=== PATIENT | female | born 1945 | race Caucasian/White ===

== ENCOUNTER 2018-09-15 15:52 | Emergency (ER) | payer MEDICARE, OTHER ==
[2018-09-15] MEDS ORDERED: Morphine Sulfate 2 mg/mL 1mL Syr IV STA (17:19)
[2018-09-15] MEDS ORDERED: Morphine Sulfate 2 mg/mL 1mL Syr ONE (17:21)
--- NOTE | 2018-09-15 17:26 | ED Physician Chart ---
ED Chief Complaint/HPI - Patient Information Date Seen:: 09/15/18 Time Seen:: 16:27 Chief Complaint:: s/p trip and fall today History of Present Illness:: s/p trip and fall today with c/o right forehead abrasion, bilateral shoulder pain and RUE pain. No LOC. No CP or SOB Allergies:: Allergies Allergy/AdvReac Type Severity Reaction Status Date / Time No Known Allergies Allergy Verified 09/15/18 16:15 Vitals:: Vital Signs - 8 hr 09/15/18 16:17 Temp 98.4 F HR 117 RR 20 BP 157/76 O2 Sat % 96 Historian:: Patient, Family Member Review:: Nurse's Note Reviewed ED Review of Systems - Review of Systems General/Constitutional: No fever, No chills, No weight loss, No weakness, No diaphoresis, No edema, No loss of appetite Skin: Bruising, Other (skin abrasions on right forehead) Head: No headache, No light-headedness Eyes: No loss of vision, No pain, No diplopia ENT: No earache, No nasal drainage, No sore throat, No tinnitus Neck: No neck pain, No swelling, No thyromegaly, No stiffness, No mass noted Cardio Vascular: No chest pain, No palpitations, No PND, No orthopnea, No edema Pulmonary: No SOB, No cough, No sputum, No wheezing GI: No nausea, No vomiting, No diarrhea, No pain, No melena, No hematochezia, No constipation, No hematemesis G/U: No dysuria, No frequency, No hematuria Musculoskeletal: Bone or joint pain Endocrine: No polyuria, No polydipsia Psychiatric: No prior psych history, No depression, No anxiety, No suicidal ideation Hematopoietic: No bruising, No lymphadenopathy Allergic/Immuno: No urticaria, No angioedema Neurological: No syncope, No focal symptoms, No weakness, No paresthesia, No headache, No seizure, No dizziness, No confusion, No vertigo ED Past Medical History - Past Medical History Obtainable: Yes Past Medical History: HTN Social History: Other (chronic norco use) Family Medical History - Family Member Mother History Unknown: Yes ED Physical Exam - Physical Examination General/Constitutional: Awake, Well-developed, well-nourished, Alert, No distress, GCS 15, Non-toxic appearing, Ambulatory Other Gen/Cons comments:: c/o R shoulder pain Head: Atraumatic Eyes: Lids, conjuctiva normal, PERRL, EOMI Skin: Well hydrated Other Skin comments:: abrasions on right forehead ENMT: External ears, nose nl Neck: No stridor Other Neck comments:: c/o neck pain. therefore, placed in c-spine precautions and c-collar placed. Respiratory: Nl effort/Exclusion, Clear to Auscultation, No Wheeze/Rhonchi/Rales Cardio Vascular: RRR, No murmur, gallop, rubs, NL S1 S2 GI: No tenderness/rebounding/guarding, No organomegaly, No hernia, Normal BS's, Nondistended, No mass/bruits, No McBurney tenderness : No CVA tenderness Other Extremities comments:: R shoulder pain without movement. Neuro/Psych: Alert/oriented, Normal sensory exam, Normal motor strength, Judgement/insight normal, Mood normal, No focal deficits Misc: Normal back, No paraspinal tenderness ED Labs/Radiology/EKG Results - Lab Results Results: Laboratory Tests 09/15/18 16:32 Troponin I 0.01 ED Assessment - Assessment General Assessment: EKG FROM 16:21:42 p.m. reveals normal sinus rhythm with flipped t wave in III and V1-V2. reading of xrays: CXR: NAD Right shoulder with a humeral fracture Left shoulder and right elbow negative ED Septic Shock - . Is Septic Shock (SBP<90, OR Lactate>4 mmol\L) present?: No - <6hrs of presentation: Vital Signs: Vital Signs - 8 hr 09/15/18 16:17 Temp 98.4 F HR 117 RR 20 BP 157/76 O2 Sat % 96 ED Reassessment (Disposition) - Reassessment Reassessment Condition:: Improved - Diagnosis Diagnosis:: Right humeral fracture Left shoulder pain Right elbow pain chest bruise Forehead abrasions - Aftercare/Follow up Instructions Aftercare/Follow-Up Instructions:: Refer to Discharge Instructions Notes:: follow up with primary care physician to get referral to an orthopedist. CD given to patient with images. Medication Prescribed:: sterile saline patient has norco at home (# 90 dispensed on 09/02/2018) - Patient Disposition Discharge/Transfer:: Home Condition at Disposition:: Stable, Improved
[2018-09-15] MEDS ORDERED: Bacitracin pkt 1 gm Pkt TP STA (18:23)
[2018-09-15] MEDS ORDERED: Bacitracin pkt 1 gm Pkt TP ONE (18:33)
--- NOTE | 2018-09-16 08:55 | Diagnostic Imaging Report ---
CHEST X-RAY: AP view INDICATION: Trauma COMPARISON: None FINDINGS: Suboptimal lung the lungs are seen with bronchovascular crowding. Bibasal atelectasis is noted. No focal consolidation pleural effusions or evidence of pneumothorax. Mild cardiomegaly is noted with ectatic aorta. Degenerative changes of the spine are noted. Right proximal humeral fracture is noted. IMPRESSION: Suboptimal lung volumes. No focal consolidation identified. Mild cardiomegaly with Ectatic aorta Right humeral head and neck fracture. Please refer to right shoulder x-ray the same day for further details No pneumothorax.
--- NOTE | 2018-09-16 09:05 | Diagnostic Imaging Report ---
Right shoulder 3 views an additional comparative view of the left shoulder Indication: Trauma Comparison: none Findings: There is a mildly displaced fracture involving the right humeral head and neck and tuberosities. There is high grade inferior subluxation of the humerus in relation to the glenoid. Moderate degenerative changes are noted greatest at the AC joint. Mild surrounding soft tissue swelling is noted. Impression: Mildly displaced fracture of the right humeral head, neck and tuberosities. There is also high-grade inferior subluxation almost dislocation of the right humeral head in relation to the glenoid. Clinical correlation is recommended.
--- NOTE | 2018-09-16 09:06 | Diagnostic Imaging Report ---
Right elbow 2 views Indication: Trauma Comparison: Right humeral x-ray the same day Findings: Exam is limited due to positioning. No elbow effusion. Small ossicle is seen adjacent to the coronoid process. No dislocation Impression: Small ossicle seen adjacent to the coronoid process probably related to old trauma. Please correlate with clinical history. Otherwise no evidence of an acute fracture. In the setting of trauma, if clinical symptoms persist and there is continued concern for an occult fracture, follow up exams in 5-7 days is suggested.
--- NOTE | 2018-09-16 09:23 | Diagnostic Imaging Report ---
Head CT without intravenous contrast Indication: Trauma Comparison: None Technique: Axial images were obtained from the vertex to the skull base without IV contrast. Coronal reconstructions were made. Total DLP: 842, CTDI43 FINDINGS: There is diffuse soft tissue swelling seen along the frontal bone region there is also a hemorrhage along the falx measuring 5 mm transverse x 1.6 cm craniocaudal. No significant mass effect. No midline shift. The ventricles and basal cisterns are patent. No evidence of a skull fracture. The paranasal sinuses are clear. IMPRESSION: Marked soft tissue swelling along the anterior frontal bone. There is also an anterior falcine hemorrhage. No mass effect or midline shift. Clinical correlation follow-up is recommended to ensure resolution.
--- NOTE | 2018-09-16 09:30 | Diagnostic Imaging Report ---
CT cervical spine without IV contrast HISTORY: Trauma COMPARISON: None Technique: Axial images were obtained from the skull base to the upper thoracic spine without IV contrast. Multiplanar reconstructions were made. Total DLP: 404, CTDI20 FINDINGS: Images of the cervical spine obtained without contrast demonstrate no evidence of an acute fracture or subluxation. Multilevel moderate to advanced degenerative changes are noted greatest involving the facet joints. There is fusion of the left C2 and C3 facet joints. Multilevel marginal osteophytic spurs are noted. No prevertebral soft tissue swelling. The lung apices are clear. IMPRESSION: No evidence of acute fracture or subluxation. Degenerative changes.
== END 2018-09-15 20:00 | disposition home or self-care (01) ==
LOC: ER 15:52
DX: S42.301A Unspecified fracture of shaft of humerus, right arm, initial encounter for closed fracture (principal); S20.219A Contusion of unspecified front wall of thorax, initial encounter; S00.81XA Abrasion of other part of head, initial encounter; M54.2 Cervicalgia; M25.521 Pain in right elbow; I10 Essential (primary) hypertension; W01.0XXA Fall on same level from slipping, tripping and stumbling without subsequent striking against object, initial encounter; Y93.89 Activity, other specified; Y92.89 Other specified places as the place of occurrence of the external cause; Y99.8 Other external cause status
CPT/HCPCS: 99284; 96374; 96375; 93005; 71045; 73030 ×2; 73080; 70450; 72125; 84484; 36415; J2270; J1885; Z7502